=== PATIENT | female | born 1965 | race Caucasian/White ===

== ENCOUNTER 2020-03-02 13:04 | Outpatient (REF) | payer OTHER, SELFPAY ==
--- NOTE | 2020-03-03 10:41 | MHC.AU.P13 ---
Adult Audiological Evaluation Date of Visit: 03/02/20 Reason for Appointment: History of hearing loss and tinnitus. Patient reports that her tinnitus is constant and bothersome. She arrives to determine if there has been a change in hearing. Previous Hearing Test Results: In our clinic on 10/10/2017- Revealed mild sloping to profound sensorineural hearing loss bilaterally Ear History: Bothersome Tinnitus/Ringing/Noises in Ears: Both Ears Medical History: Medical History: Congenital Adrenal Hyperplasia, Diabetes Hearing Instrument History- Right Ear: Office Aide: [employer] Model: R [employer] V50-SP Serial Number: [id number] Battery Size: 13 Warranty: 08/22/2017 Hearing Instrument History- Left Ear: Office Aide: [employer] Model: [id number] Serial Number: [id number] Battery Size: 13 Warranty: 08/22/2017 Otoscopy: Right Ear: Unremarkable Left Ear: Unremarkable Tympanometry: Right Ear: Normal Middle Ear System (Type A) Left Ear: Normal Middle Ear System (Type A) Hearing Evaluation: Transducer(s) Used: Insert Earphones Method: Conventional Audiometry Stimuli Used: Pure Tones Right Ear: Description of Hearing: Mild sloping to profound sensorineural hearing loss Left Ear: Description of Hearing: Mild sloping to profound sensorineural hearing loss Speech Recognition Threshold (SRT): Method Used: Recorded Lists Stimuli Used: Spondee Words Right Ear: 45 Left Ear: 40 Word Discrimination: Method: Recorded Lists Word Lists Used: NU-6 Right Ear: 96% at 75 dBHL Left Ear: 100% at 80 dBHL Most Comfortable Level (MCL): Right Ear: 75 dBHL Left Ear: 80 dBHL Comparison: Compared to the most recent evaluation: Hearing is stable. Recommendations: Recommendations: Audiological re-evaluation in one year. Hearing aid programming was updated with today's results. A tinnitus masking program was added, using white noise. Patient felt that it was adequately masking her tinnitus in office, and will see how it goes over the next few days. Discussed looking into Cognitive Behavior Therapy to help with tinnitus as well. Hearing aid maintenance was performed. While changing slim tubes, right slim tip broke. Impression was taken for new mold-no charge to patient as it was broken during maintenance. For now, a small power dome was placed on the slim tip. Patient will be contacted when the new mold has arrived. Diagnosis: Primary Diagnosis: H90.3 Bilateral Sensorineural Hearing Loss Secondary Diagnosis: H93.13 Tinnitus, Bilateral Services Performed: Services Performed: Comprehensive Audiological Evaluation (CPT 92508) Tympanometry (CPT 50437) Signature: Provider: Tasia Lobo, CCC-A
== END 2020-03-02 13:05 | disposition home or self-care (01) ==
LOC: HO.SH 13:04
PROVIDERS: Visit Provider Internal Medicine
DX: H90.3 Sensorineural hearing loss, bilateral (principal); H93.13 Tinnitus, bilateral
CPT/HCPCS: 92557; 92567; V5266

== ENCOUNTER 2020-04-06 08:08 | Outpatient (REF) | payer OTHER, SELFPAY | END 2020-04-06 08:09 | disposition home or self-care (01) | LOC: HO.HAP 08:08 | PROVIDERS: PCP Internal Medicine; Referring Provider Internal Medicine; Visit Provider Internal Medicine | DX: Z13.89 Encounter for screening for other disorder (principal) | CPT/HCPCS: 92700 ==

== ENCOUNTER 2020-04-11 09:49 | Outpatient (REF) | payer OTHER, SELFPAY | END 2020-04-11 09:50 | disposition home or self-care (01) | LOC: HO.HAP 09:49 | PROVIDERS: PCP Internal Medicine; Referring Provider Internal Medicine; Visit Provider Internal Medicine | DX: Z13.89 Encounter for screening for other disorder (principal) | CPT/HCPCS: 92700 ==

== ENCOUNTER 2020-05-19 12:24 | Outpatient (REF) | payer OTHER, SELFPAY | END 2020-05-19 12:25 | disposition home or self-care (01) | LOC: HO.HAP 12:24 | PROVIDERS: Visit Provider Internal Medicine | DX: Z13.89 Encounter for screening for other disorder (principal) ==

== ENCOUNTER 2023-11-08 09:09 | Outpatient (REF) | payer OTHER, SELFPAY | END 2023-11-08 09:10 | disposition home or self-care (01) | LOC: HO.SH 09:09 | PROVIDERS: Visit Provider Internal Medicine | DX: Z01.118 Encounter for examination of ears and hearing with other abnormal findings (principal); H90.3 Sensorineural hearing loss, bilateral | CPT/HCPCS: 92552; 92556 ==